=== PATIENT | female | born 1985 | race Caucasian/White ===

== ENCOUNTER 2023-11-30 12:08 | Emergency (ER) | payer OTHER ==
[2023-11-30] MEDS: Tetracaine HCl/PF 0.5% 4 ML Bottle EYELF ONE (12:54)
== END 2023-11-30 13:20 | disposition home or self-care (01) ==
LOC: JP.ED 12:08
DX: T15.92XA Foreign body on external eye, part unspecified, left eye, initial encounter (principal); W20.8XXA Other cause of strike by thrown, projected or falling object, initial encounter
CPT/HCPCS: 99283